=== PATIENT | male | born 1980 | race Asian ===

== ENCOUNTER 2017-12-06 06:24 | Emergency (ER) | payer OTHER ==
[2017-12-06] MEDS ORDERED: ASPIRIN PO ONE (06:31)
[2017-12-06] MEDS ORDERED: MORPHINE IV ONE (06:50)
[2017-12-06] MEDS ORDERED: NACL 0.9% 1000 ML 2,000 ML IV ONE (06:50)
[2017-12-06] MEDS ORDERED: ZOFRAN IV ONE (06:51)
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
[2017-12-06 07:16] LABS: Basophils % (Auto) 0.7 % (0.0-1.8); Hematocrit 43.8 % (35.5-45.6); Hemoglobin 14.6 gm/dl (11.8-15.2); Lymphocytes # (Auto) 0.8 K/mm3 (1.2-5.4); Lymphocytes % (Auto) 20.7 % (13.4-35.0); Mean Corpuscular HGB Conc 33 % (32-34); Mean Corpuscular Hemoglobin 28 pg (28-32); Mean Corpuscular Volume 84 fl (84-94); Monocytes # (Auto) 0.3 K/mm3 (0.0-0.8); Monocytes % (Auto) 8.1 % (0.0-7.3); Platelet Count 309 K/mm3 (140-440); Red Blood Count 5.19 M/mm3 (3.65-5.03); Red Cell Distribution Width 14.1 % (13.2-15.2)
[2017-12-06 07:24] LABS: BUN/Creatinine Ratio 13; Blood Urea Nitrogen 12 mg/dL (9-20); Calcium 8.9 mg/dL (8.4-10.2); Hemolysis Index 15
[2017-12-06] MEDS ORDERED: ATIVAN IV ONE ×2 (08:20→09:16)
[2017-12-06] MEDS ORDERED: CALAN PO ONE (09:00)
[2017-12-06] MEDS ORDERED: NACL 0.9% 1000 ML 1,000 ML ONE ×2 (09:16→15:17)
[2017-12-06 09:55] LABS: Benzodiazepines Screen,Urine PRESUMPTIVE NEGATIVE; Cannabinoid Screen,Urine PRESUMPTIVE NEGATIVE; Cocaine Screen,Urine PRESUMPTIVE NEGATIVE; Methadone Screen,Urine PRESUMPTIVE NEGATIVE
[2017-12-06 10:13] LABS: Amphetamine Screen,Urine PRESUMPTIVE POSITIVE; Opiate Screen,Urine PRESUMPTIVE POSITIVE
[2017-12-07 00:18] VITALS: BP 114/84
== END 2017-12-07 00:15 | disposition home or self-care (01) ==
LOC: ED 06:24
DX: R07.9 Chest pain, unspecified (principal); F14.10 Cocaine abuse, uncomplicated; I10 Essential (primary) hypertension; F17.200 Nicotine dependence, unspecified, uncomplicated
CPT/HCPCS: 36415; 80048; 80307; 84484; 85025; 85379; 93005; 93010; 96374; 96375; 96376; 99284; G0480; J2060; J2270; J2405; J7030; 80320

== ENCOUNTER 2021-10-15 15:56 | Emergency (ER) | payer MEDICAID ==
[2021-10-15 17:23] VITALS: BP 180/96
== END 2021-10-15 21:00 | disposition left against medical advice (07) ==
LOC: ED 15:56
DX: Z53.21 Procedure and treatment not carried out due to patient leaving prior to being seen by health care provider (principal)